=== PATIENT | female | born 1980 | race Caucasian/White ===

== ENCOUNTER 2017-05-29 10:18 | Outpatient (CLI) | payer OTHER ==
[~2017-05-29] VITALS: Ht 175.3 cm; Wt 78.1 kg
[2017-05-29 10:29] VITALS: BP 108/54
== END 2017-05-29 11:50 | disposition home or self-care (01) ==
LOC: LDOP 10:18
PROVIDERS: ATTEND Obstetrics & Gynecology
DX: O09.523 Supervision of elderly multigravida, third trimester (principal); O12.03 Gestational edema, third trimester; M25.461 Effusion, right knee; Z3A.28 28 weeks gestation of pregnancy
CPT/HCPCS: 59025; 99211; G0463